=== PATIENT | female | born 1955 | race Caucasian/White ===

== ENCOUNTER 2016-12-28 19:26 | Emergency (ER) | payer OTHER ==
[2016-12-28 19:56] LABS: BASOPHILS % 0.6 (0.0-1.5); MEAN CORPUSCULAR HEMOGLOBIN 32.3 pg (28.0-34.0); MEAN CORPUSCULAR VOLUME 92.8 fl (80.0-100.0); MONOCYTES % 4.8 % (0.0-11.0); NEUTROPHILS # 4.8 # k/uL (1.4-7.7)
[2016-12-28 19:57] LABS: eGFR (African) > 60; eGFR (Non-African) > 60
[2016-12-28] MEDS: 0.9 % SODIUM CHLORIDE 1,000 ML IV ONE (20:15)
--- NOTE | 2016-12-28 21:57 | ED Physician Documentation ---
Syncope/Near Syncope - HISTORIAN Historian: patient, spouse, other (friend) - HPI Stated Complaint: Dizziness Chief Complaint: Syncope Additional Information: pt mowed l;awn this pm went w/ friend to local hotel ate pasta had part gl wine- didnt taste right got up to leave w/friend-on way to door near/syncope - friend helped slump to floor wq/.o trauma frient thinks did not loose conciousness-pt thinks did momentarily lay there till amb arrived stood to geton stretcher remained dizzy. better on arrival to ed. no prev hx syncope much better 'now- iv going. perhaps dehydrated after mowing lawn and felt nauseated from bad tasting wine. Witnessed: Yes Witnessed By: friend Position at Time of Episode: standing (had just gotten up from table walking to door) Symptoms Prior to Episode: light-headed (dizzy), nausea. denies: vomiting, chest pain, palpitations, racing heart Character of Events(s): almost passed out (pt thinks out for awhile) Symptoms after Event: denies: confused after event, incontinent of urine, incontinent of stool, breathing shallow, breathing stopped Location of Injury: none Associated Symptoms: none, feels back to normal, nausea. denies: vomiting - ROS CONST: recent illness EYES/ENT: denies: problems with vision GI/: denies: problems urinating LNMP: denies: NEURO/PSYCH: denies: confusion, anxiety, depression (I feel fine lying here now) - PAST HX Cardiac Disease: none PE Risk Factors: hypertension, other (lo thryoid) Surgeries/Procedures: cholecystectomy, hysterectomy (bilat breast removal ca lt breast) Allergies/Adverse Reactions: Allergies Allergy/AdvReac Type Severity Reaction Status Date / Time acetaminophen [From Vicodin] Allergy Mild Verified 12/28/16 19:42 hydrocodone bitartrate Allergy Mild Verified 12/28/16 19:42 [From Vicodin] Home Medications: Ambulatory Orders Medication Instructions Recorded Metoprolol Tartrate [Lopressor] 50 mg PO DAILY 12/28/16 Thyroid,Pork [Wp Thyroid] 130 mg PO QDAY 12/28/16 Trazodone HCl [Desyrel] 100 mg PO HS 12/28/16 - SOCIAL HX Smoking History: non-smoker Alcohol Use: none Drug Use: none (1/2 gl wine as described-rare intake) - FAMILY HX Family History: none - VITAL SIGNS Vital Signs: Vital Signs Temp Pulse Resp BP Pulse Ox 98.0 F 75 16 120/61 95 12/28/16 19:38 12/28/16 21:30 12/28/16 19:38 12/28/16 19:38 12/28/16 21:00 - REVIEWED ASSESSMENTS Nursing Assessment Reviewed: Yes Vitals Reviewed: Yes ED Results Lab/Radiology - Lab Results Lab Results: Lab Results 12/28/16 12/28/16 19:33 19:33 WBC 8.80 K/ul K/ul (4.00-12.00) RBC 3.85 M/ul L M/ul (3.90-5.20) Hgb 12.4 g/dL g/dL (12.0-16.0) Hct 35.7 % % (34.5-46.5) MCV 92.8 fl fl (80.0-100.0) MCH 32.3 pg pg (28.0-34.0) MCHC 34.8 g/dL g/dL (30.0-36.0) RDW 12.7 % % (11.3-14.3) Plt Count 391 K/mm3 K/mm3 (130-400) Neut % (Auto) 54.1 % % (39.0-79.0) Lymph % (Auto) 36.1 % % (16.0-50.0) [place] % (Auto) 4.8 % % (0.0-11.0) Eos % (Auto) 2.0 % % (0.0-6.8) Baso % (Auto) 0.6 (0.0-1.5) Neut # (Auto) 4.8 # k/uL # k/uL (1.4-7.7) Lymph # (Auto) 3.2 # k/uL # k/uL (0.6-4.0) [place] # (Auto) 0.4 # k/uL # k/uL (0.0-0.9) Eos # (Auto) 0.2 # k/uL # k/uL (0.0-0.6) Baso # (Auto) 0.1 # k/uL # k/uL (0.0-0.5) Reactive Lymphs % 2.3 % % (0.0-5.0) Reactive Lymphs # 0.2 # k/uL # k/uL (0.0-0.8) Sodium 142 mmol/L mmol/L (136-145) Potassium 3.9 mmol/L mmol/L (3.5-5.0) Chloride 108 mmol/L mmol/L (98-110) Carbon Dioxide 29 mmol/L mmol/L (20-32) BUN 25 mg/dL mg/dL (10-26) Creatinine 1.0 mg/dL mg/dL (0.4-1.5) Estimated Creat Clear 97 Est GFR ( Amer) > 60 (60 - ) Est GFR (Non-Af Amer) > 60 (60 - ) Glucose 120 mg/dL H mg/dL (70-99) Calcium 9.2 mg/dL mg/dL (8.5-10.5) Total Bilirubin 0.2 mg/dL mg/dL (0.2-1.2) AST 17 U/L U/L (0-41) ALT 20 U/L U/L (0-45) Alkaline Phosphatase 71 U/L U/L (46-116) Total Protein 7.2 g/dL g/dL (6.0-8.5) Albumin 4.2 g/dL g/dL (3.0-5.5) - Orders Orders: ED Orders Category Date Time Status Continuous EKG monitoring Q1H Care 12/28/16 19:30 Active Continuous Pulse Oximetry Q1H Care 12/28/16 19:[address] IV Lock 1T Care 12/28/16 19:30 Completed CBC/PLATELET/DIFF Routine Lab 12/28/16 19:33 Completed CMP Routine Lab 12/28/16 19:33 Completed URINALYSIS Routine Lab 12/28/16 Ordered 0.9 % Sodium Chloride [Normal Saline] 1,000 ml Med 12/28/16 19:30 Discontinued IV Q1H EKG WITH COMPARISON Stat Ther 12/28/16 Ordered Syncope Physical Exam - Physical Exam General Appearance: mild distress (almost none now) EENT: nml eye inspection Neck/Back: neck supple, non-tender, no carotid bruit. No: cerv. lymphadenopathy Respiratory: no resp distress, chest non-tender, breath sounds normal CVS: reg rate & rhythm, heart sounds normal Abdomen: non-tender Extremities: non-tender, normal range of motion, no evidence of injury, no edema , other (dtr plus 2 symm) - Neuro/Psych Higher Functions: alert, oriented x3, no evidence of acute CVA, mood/affect nml. denies: abnml respond to command Cerebellar: nml as tested Sensorimotor: nml motor response, nml sensory response, nml reflexes. denies: motor deficit, sensory deficit Discharge Clincal Impression: near syncope/syncope, Dehydration Referrals: Dilan Greenberg MD [Primary Care Provider] - 2 Days Home Medications: Ambulatory Orders Metoprolol Tartrate [Lopressor] 50 mg PO DAILY 12/28/16 Thyroid,Pork [Wp Thyroid] 130 mg PO QDAY 12/28/16 Trazodone HCl [Desyrel] 100 mg PO HS 12/28/16 Comments: sf syncope rules neg pt amb w/o diff home reest ORT Condition: Good Disposition: 01 HOME, SELF-CARE Decision to Admit: NO Decision Time: 21:56
[2016-12-28 22:07] VITALS: BP 134/67
== END 2016-12-28 22:01 | disposition home or self-care (01) ==
LOC: ED 19:26
DX: R55 Syncope and collapse (principal); E86.0 Dehydration
CPT/HCPCS: 80053; 85025; 96361; 99283; J7030